=== PATIENT | male | born 1935 | race Caucasian/White ===

== ENCOUNTER 2016-07-26 09:35 | Emergency (ER) | payer MEDICARE, OTHER ==
[~2016-07-26 09:35] MED LIST: ADVAIR 250-501 EACH IH; ALBUTEROL HFA6.7 GM IH; B-121000 MCG PO; CHILDREN'S ASPI81 MG PO; COUMADIN5 MG PO; CYPROHEPTADINE H4 MG PO; DAILY VITE1 EACH PO; FLAREX5 ML OU; FLOMAX0.4 MG PO; LIPITOR80 MG PO; MAXZIDE 37.5 M1 EACH PO; METROGEL55 GM TOP; MUCINEX600 MG PO; MYSOLINE50 MG PO; NITROSTAT0.4 MG SL; ORAMORPH SR15 MG PO; PLAVIX75 MG PO; PREDNISONE5 MG PO; PROSCAR5 MG PO; SPIRIVA18 MCG IH; SYNTHROID100 MCG PO; VITAMIN D31000 UNI1 PO; ZEBETA5 MG PO
== END 2016-07-26 11:00 | disposition home or self-care (01) ==
LOC: ER 09:35
DX: R04.0 Epistaxis (principal); J44.9 Chronic obstructive pulmonary disease, unspecified; I11.0 Hypertensive heart disease with heart failure; I50.9 Heart failure, unspecified; I25.2 Old myocardial infarction; E03.9 Hypothyroidism, unspecified; E78.5 Hyperlipidemia, unspecified; Z86.73 Personal history of transient ischemic attack (TIA), and cerebral infarction without residual deficits; Z79.01 Long term (current) use of anticoagulants; Z79.02 Long term (current) use of antithrombotics/antiplatelets; Z79.82 Long term (current) use of aspirin; Z79.899 Other long term (current) drug therapy; Z91.030 Bee allergy status; Z90.49 Acquired absence of other specified parts of digestive tract
CPT/HCPCS: 36415